=== PATIENT | male | born 1950 | race Caucasian/White ===

== ENCOUNTER 2016-12-29 11:46 | Day surgery (SDC) | payer OTHER ==
[~2016-12-29] VITALS: Ht 188 cm; Wt 90.3 kg
[~2016-12-29 11:46] MED LIST: ATOR10TA65 PO; BISO1TAB PO; FINA5TAB4 PO; RAMI10CA48 PO; RAMI5CAP46 PO
[2016-12-29] MEDS ORDERED: SOTALOL (12:39)
[2016-12-29] MEDS ORDERED: ROSUVASTATIN CALCIUM (12:39)
[2016-12-29] MEDS ORDERED: ASPIRIN (12:39)
[2016-12-29 12:40] VITALS: Ht 188 cm; Wt 90.3 kg
[2016-12-29 13:09] VITALS: BP 109/71; PULSE 58; RESP 18
[2016-12-29] MEDS ORDERED: MIDAZOLAM 1 MG/ML 2 ML INJ ONE (14:10)
[2016-12-29] MEDS ORDERED: FENTAnyl 50 MCG/ML VIAL ONE (14:10)
[2016-12-29] MEDS ORDERED: PROPOFOL 20 ML ONE (14:10)
[2016-12-29 14:19] VITALS: BP 123/80; PULSE 70; RESP 16
[2016-12-29 14:35] VITALS: BP 101/82; RESP 16
[2016-12-29 15:04] VITALS: BP 112/71; PULSE 56; RESP 15
--- NOTE | 2016-12-29 17:19 | GILP ---
DATE OF PROCEDURE: 12/29/2016 DATE: 12/29/2016 PROCEDURE: Colonoscopy with biopsies. 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 Here for reevaluation. PREMEDICATION: Monitored anesthesia care by anesthesiologist. SURGEON: Deborah Unger MD. INSTRUMENT USED: Olympus colonoscope. PREPARATION: Adequate. TECHNIQUE: After informed consent, with the patient/relatives understanding the procedure, its indic ations potential risks and complications, including but not limited to: allergic reaction, bleeding, perforation, infection, missed lesions and after all pertinent questions were answered to the patie nt's satisfaction, the patient/relatives signed the witnessed informed consent. Following this, premedication was administered slowly IV push by under careful cardiovascular and re spiratory monitoring with pulse oximetry, automatic blood pressure and equipment monitor phototypesetting. Once the sedativ e effect was achieved, the patient was placed in the left lateral decubitus position, digital rectal examination was performed. The colonoscope was then introduced and advanced under visual control th roughout all segments of the colon including: the rectum, sigmoid, descending colon, splenic flexure , transverse colon, hepatic flexure, ascending colon and finally reaching the cecum which was clearl y identified by transillumination, finger indentation and the ileocecal valve. Careful examination o f the mucosa of the lower gastrointestinal tract both on insertion as well as withdrawal of the inst rument disclosed the following findings: Rectal Examination: No evidence of perirectal disease, no masses. Colonic Mucosa: The colonic mucosa entirely unremarkable throughout. As we reached the area of the cecum in the area where the appendix would be located, again, a tubular structure covered by a mina l appearing mucosa highly suggestive of an inverted appendix is identified. In addition, the patien t provides this information of a colonoscopy performed in 2005 at which time the same assessment was reached in regards to the inverted appendix possibility. Biopsies were obtained in a limited fashion. The instrument was withdrawn, no additional abnormalit ies were noted with the exception of moderate sized internal hemorrhoids. The patient tolerated the procedure well and was transferred out of the Endoscopy Suite awake and in good condition to continue recovery under observation. IMPRESSION: 1. Inverted appendix, biopsies obtained. 2. Otherwise, normal colonic mucosa to cecum. 3. Moderate size internal hemorrhoids. PLAN: Pathology will be reviewed as soon as available. Further recommendation will depend on the p atient's clinical course as well as review of biopsies. Surveillance colonoscopy in 5 years is taco mmended. Annual Hemoccult stool testing is also recommended. Dictated By: DEBORAH UNGER MS/KETURAH Conf#: [id number] DID#: [id number]
== END 2016-12-30 16:26 | disposition home or self-care (01) ==
LOC: GIL 11:46
PROVIDERS: ATTEND Internal Medicine Gastroenterology
DX: K38.8 Other specified diseases of appendix (principal); K64.8 Other hemorrhoids; I10 Essential (primary) hypertension; E11.9 Type 2 diabetes mellitus without complications
CPT/HCPCS: 45380; 88305; J2250; J3010; Z7610